=== PATIENT | female | born 1940 | race Two or more races ===

== ENCOUNTER 2018-08-04 13:54 | Outpatient (CLI) | payer OTHER | END 2018-08-04 14:00 | disposition home or self-care (01) | LOC: NUCLEAR 13:54 | DX: M81.8 Other osteoporosis without current pathological fracture (principal) ==

== ENCOUNTER 2020-12-19 11:42 | Outpatient (CLI) | payer OTHER | END 2020-12-19 11:49 | disposition home or self-care (01) | LOC: MAMO-SONO 11:42 | PROVIDERS: ATTEND Family Medicine | DX: N64.4 Mastodynia (principal); Z12.31 Encounter for screening mammogram for malignant neoplasm of breast ==

== ENCOUNTER → 2021-03-04 13:54 | Outpatient (CLI) | payer OTHER | END | disposition home or self-care (01) | LOC: NUCLEAR 01-18 14:00 | PROVIDERS: ATTEND Family Medicine | DX: M81.0 Age-related osteoporosis without current pathological fracture (principal) ==